=== PATIENT | male | born 1955 | race Caucasian/White ===

== ENCOUNTER 2017-01-12 07:53 | Day surgery (SDC) | payer OTHER ==
[~2017-01-12] VITALS: Ht 175.3 cm; Wt 99.8 kg
[~2017-01-12 07:53] MED LIST: ACYCLOVIR800 MG PO; AMOXICILLIN500 MG PO; ASPIRIN ADULT L81 M2 PO; ASPIRIN CHEWABL81 MG PO; BACTRIM DS1 TAB PO; BETAMETHASONE0.051 EX; CLOPIDOGREL75 MG PO; COQ-10100 MG PO; FLAGYL500 MG PO; IBUPROFEN800 MG PO; METOPROL TAR25 MG PO; MOTRIN800 MG PO; MOTRIN800 MG/TAB PO; NEXIUM20 M1 PO; OMEPRAZOLE40 MG PO; PLAVIX75 MG PO; PRAVASTATIN SOD20 MG PO; PRAVASTATIN SOD40 MG PO; PRILOSEC20 MG/CAP PO; VIAGRA25 MG PO; VICODIN1 TAB PO; ZYBAN150 MG OR
[2017-01-12 09:45] VITALS: BP 150/90
== END 2017-01-12 10:22 | disposition home or self-care (01) | DRG 392 ==
LOC: ENDO 07:53 → ORM 16:00
PROVIDERS: ATTEND Internal Medicine Gastroenterology
PROC: 0DB48ZX Excision of Esophagogastric Junction, Via Natural or Artificial Opening Endoscopic, Diagnostic (ICD-10-PCS; principal; 2017-01-12)
PROC: 0DBE8ZX Excision of Large Intestine, Via Natural or Artificial Opening Endoscopic, Diagnostic (ICD-10-PCS; 2017-01-12)
PROC: 0DBN8ZX Excision of Sigmoid Colon, Via Natural or Artificial Opening Endoscopic, Diagnostic (ICD-10-PCS; 2017-01-12)
DX: K21.9 Gastro-esophageal reflux disease without esophagitis (principal); K63.5 Polyp of colon; Z12.11 Encounter for screening for malignant neoplasm of colon; K63.89 Other specified diseases of intestine; I25.10 Atherosclerotic heart disease of native coronary artery without angina pectoris; E78.00 Pure hypercholesterolemia, unspecified; K64.4 Residual hemorrhoidal skin tags; K64.8 Other hemorrhoids; K29.70 Gastritis, unspecified, without bleeding; K44.9 Diaphragmatic hernia without obstruction or gangrene; Z95.5 Presence of coronary angioplasty implant and graft; Z95.1 Presence of aortocoronary bypass graft; Z86.010 Personal history of colon polyps; Z87.891 Personal history of nicotine dependence

== ENCOUNTER 2020-10-04 14:13 | Inpatient (IN) | payer OTHER ==
[~2020-10-04] VITALS: Ht 175.3 cm; Wt 99.3 kg
[2020-10-04 14:58] LABS: HEMATOCRIT 40.1 % (39.0-50.0); HEMOGLOBIN 13.9 g/dl (14.0-18.0); IMMATURE GRANULOCYTES 0.6 % (0.0-5.0); MEAN CORPUSCULAR HGB 29.4 pG CALC (26.0-32.0); MEAN CORPUSCULAR HGB CONC 34.7 g/dL CAL (32.0-36.0); NEUT# 5.04 thou/uL (1.82-7.42); RED BLOOD COUNT 4.72 mill/uL (4.70-6.10); RED CELL DISTRI WIDTH 12.5 % (11.5-15.5)
[2020-10-04 15:18] LABS: ALBUMIN 3.8 g/dL (3.2-5.0); ALKALINE PHOSPHATASE 98 u/l (38-126); BUN 13 mg/dL (8-23); BUN/CREATININE RATIO 15 (12-20 (CALC)); CARBON DIOXIDE 26 mmol/l (22-30); CHLORIDE 99 mmol/l (95-108); CREATININE 0.8 mg/dL (0.7-1.3); GFR > 60 ML/MIN (>=60 (CALC)); GFR FOR AFR.AMER. > 60 ML/MIN (>=60 (CALC)); LIPASE 451 u/l (23-300); TOTAL PROTEIN 7.1 g/dL (6.3-8.2)
[2020-10-04 15:37] LABS: ANION GAP 12 (6-22 (CALC)); C-REACTIVE PROTEIN 12.2 mg/dL (0-0.9); POTASSIUM 3.6 mmol/l (3.5-5.1); SGOT/AST 123 u/l (19-48); SODIUM 133 mmol/l (137-146)
[2020-10-04 19:16] VITALS: BP 139/73
[2020-10-05] VITALS: BP 123/69
[2020-10-05 03:30] VITALS: BP 118/70
[2020-10-05 05:22] LABS: HEMOGLOBIN 14.9 g/dl (14.0-18.0); MEAN CELL VOLUME 85.8 fL CALC (80.0-100.0); MEAN CORPUSCULAR HGB CONC 33.9 g/dL CAL (32.0-36.0); NEUT# 4.47 thou/uL (1.82-7.42); RED BLOOD COUNT 5.13 mill/uL (4.70-6.10); RED CELL DISTRI WIDTH 12.6 % (11.5-15.5)
[2020-10-05 05:48] LABS: ALBUMIN 3.5 g/dL (3.2-5.0); ALKALINE PHOSPHATASE 103 u/l (38-126); ANION GAP 13 (6-22 (CALC)); BUN 13 mg/dL (8-23); BUN/CREATININE RATIO 18 (12-20 (CALC)); C-REACTIVE PROTEIN 7.7 mg/dL (0-0.9); CARBON DIOXIDE 23 mmol/l (22-30); CHLORIDE 106 mmol/l (95-108); CREATININE 0.7 mg/dL (0.7-1.3); GFR > 60 ML/MIN (>=60 (CALC)); GFR FOR AFR.AMER. > 60 ML/MIN (>=60 (CALC)); POTASSIUM 4.3 mmol/l (3.5-5.1); SGOT/AST 129 u/l (19-48); SODIUM 137 mmol/l (137-146); TOTAL PROTEIN 6.3 g/dL (6.3-8.2)
[2020-10-05 08:20] VITALS: BP 131/70
[2020-10-05 10:51] LABS: URINE BILIRUBIN - DIPSTICK NEGATIVE (NEGATIVE); URINE BLOOD DIPSTICK NEGATIVE (NEGATIVE); URINE COLOR YELLOW; URINE GLUCOSE - DIPSTICK NEGATIVE (NEGATIVE); URINE KETONE NEGATIVE (NEGATIVE); URINE LEUK ESTERASE NEGATIVE (NEGATIVE); URINE NITRITE - DIPSTICK NEGATIVE (Negative); URINE PROTEIN - DIPSTICK NEGATIVE (NEG-TRACE); URINE SPECIFIC GRAVITY 1.015; URINE UROBILINOGEN - DIPSTICK 0.2 E.U./dL (0.2)
[2020-10-05 11:00] VITALS: BP 113/67
[2020-10-05 14:35] VITALS: BP 120/73
== END 2020-10-05 16:15 | disposition short-term general hospital (02) | DRG 177 ==
LOC: ED 14:13 → ED-I 16:35 → ED 16:52 → MS2 16:53
PROVIDERS: Family Medicine; ADMIT Internal Medicine; ATTEND Internal Medicine
PROC: XW033E5 Introduction of Remdesivir Anti-infective into Peripheral Vein, Percutaneous Approach, New Technology Group 5 (ICD-10-PCS; principal; 2020-10-05)
DX: U07.1 COVID-19 (principal); J12.82 Pneumonia due to coronavirus disease 2019; J96.01 Acute respiratory failure with hypoxia; R53.83 Other fatigue; I10 Essential (primary) hypertension; I25.10 Atherosclerotic heart disease of native coronary artery without angina pectoris; K21.9 Gastro-esophageal reflux disease without esophagitis; Z95.1 Presence of aortocoronary bypass graft
CPT/HCPCS: J1650; Q9967